=== PATIENT | female | born 1990 | race African-American/Black ===

== ENCOUNTER 2018-09-20 11:55 | Observation (INO) | payer MEDICAID ==
[2018-09-20 14:49] LABS: BILIRUBIN,URINE NEGATIVE (NEGATIVE); GLUCOSE, URINE (UA) NEGATIVE (NEGATIVE); KETONES,URINE NEGATIVE (NEGATIVE); LEUKOCYTE ESTERASE ,URINE SMALL (NEGATIVE); NITRATE,URINE NEGATIVE (NEGATIVE); OCCULT BLOOD,URINE NEGATIVE (NEGATIVE); PH,URINE 7.5 (5.0-8.0); PROTEIN,URINE NEGATIVE (NEGATIVE); UROBILINOGEN,URINE 0.2 mg/dL (<=1.0)
[2018-09-20 14:53] LABS: APPEARANCE,URINE HAZY (CLEAR)
[2018-09-20 14:54] LABS: BACTERIA,URINE Few /HPF (None Seen); RBC,URINE 0-2 /HPF (0-2); SQUAMOUS EPITHELIAL CELL,UR Moderate /LPF (None Seen)
[2018-09-25 18:33] VITALS: BP 113/61
== END 2018-09-20 15:30 | disposition home or self-care (01) ==
LOC: OBSVTOIN 11:55 → INTOOBSV 11:55 → 4S 11:55
PROVIDERS: ADMIT Obstetrics & Gynecology; ATTEND Obstetrics & Gynecology
DX: O42.913 Preterm premature rupture of membranes, unspecified as to length of time between rupture and onset of labor, third trimester (principal); O26.893 Other specified pregnancy related conditions, third trimester; R10.30 Lower abdominal pain, unspecified; Z3A.36 36 weeks gestation of pregnancy
CPT/HCPCS: 36415; 76811; 80307 ×8; 80349; 81001; 89060; G0378; 99219

== ENCOUNTER 2018-09-25 16:57 | Observation (INO) | payer MEDICAID ==
[2018-09-25] MEDS ORDERED: ACETAMINOPHEN 325 MG TABLET PO ONE (20:00)
[2018-09-26 02:44] VITALS: BP 120/65
== END 2018-09-25 23:45 | disposition home or self-care (01) ==
LOC: 4S 16:57
PROVIDERS: ADMIT Obstetrics & Gynecology; ATTEND Obstetrics & Gynecology
DX: O26.893 Other specified pregnancy related conditions, third trimester (principal); R10.9 Unspecified abdominal pain; O99.89 Other specified diseases and conditions complicating pregnancy, childbirth and the puerperium; M54.5 Low back pain; O62.9 Abnormality of forces of labor, unspecified; Z3A.37 37 weeks gestation of pregnancy
CPT/HCPCS: 81002; G0378

== ENCOUNTER 2019-08-04 17:42 | Emergency (ER) | payer MEDICAID, OTHER ==
[~2019-08-04] VITALS: Ht 170.2 cm; Wt 66.8 kg
[2019-08-04 21:30] VITALS: BP 128/55
[2019-08-04] MEDS ORDERED: ACETAMINOPHEN 500 MG TABLET PO ONE (21:30)
[2019-08-04] MEDS ORDERED: IBUPROFEN 600 MG TABLET PO ONE (21:30)
== END 2019-08-04 23:12 | disposition home or self-care (01) ==
LOC: EMS 17:46
DX: S93.401A Sprain of unspecified ligament of right ankle, initial encounter (principal); S90.111A Contusion of right great toe without damage to nail, initial encounter; F17.210 Nicotine dependence, cigarettes, uncomplicated; Z20.828 Contact with and (suspected) exposure to other viral communicable diseases; X58.XXXA Exposure to other specified factors, initial encounter; Y93.89 Activity, other specified; Y92.89 Other specified places as the place of occurrence of the external cause; Y99.8 Other external cause status
CPT/HCPCS: 87635

== ENCOUNTER 2021-04-06 23:26 | Emergency (ER) | payer OTHER ==
[~2021-04-06] VITALS: Ht 170.2 cm; Wt 68.2 kg
[2021-04-06] MEDS ORDERED: OxyCODONE HCL 5 MG IR TABLET PO ONE (23:45)
[2021-04-06] MEDS ORDERED: AMOX TR/POT CLAV 875 MG/125 MG TABLET PO ONE (23:45)
[2021-04-07] MEDS ORDERED: BENZOCAINE/MENTHOL/ZINC CL 20% 11.9 GM GEL TP ONE (00:45)
[2021-04-07] MEDS ORDERED: BUPIVACAINE HCL/PF 0.25% 10 ML VIAL ID ONE (00:45)
[2021-04-07] MEDS ORDERED: LIDOCAINE 2%/EPI 1:200,000/PF 20 ML VIAL ID ONE (00:45)
[2021-04-07 01:38] VITALS: BP 134/82
== END 2021-04-07 03:18 | disposition home or self-care (01) ==
LOC: EMS 23:28
DX: S02.5XXA Fracture of tooth (traumatic), initial encounter for closed fracture (principal); X58.XXXA Exposure to other specified factors, initial encounter; Y93.89 Activity, other specified; Y92.89 Other specified places as the place of occurrence of the external cause; Y99.8 Other external cause status
CPT/HCPCS: 99284; J3490